=== PATIENT | male | born 1945 | race Caucasian/White ===

== ENCOUNTER 2018-06-13 06:26 | Day surgery (SDC) | payer MEDICARE ==
[2018-06-13] MEDS ORDERED: Propofol 200 MG/20 ML SDV IV ONE (06:27)
[2018-06-13] MEDS ORDERED: Lidocaine 2% 100 MG/5 ML Syringe IVPUSH ONE (06:27)
[2018-06-13] MEDS ORDERED: Phenylephrine 1% 10 MG/ML SDV IV ONE (06:27)
[2018-06-13] MEDS ORDERED: Sodium Chloride 0.9% 10 ML Syringe FLUSH PRN (06:45)
[2018-06-13] MEDS ORDERED: Lactated Ringers 1,000 ML IV SCH (06:45)
--- NOTE | 2018-06-13 08:08 | PCM.OPNOTE ---
- General Post-Op/Procedure Note Date of Surgery/Procedure: 06/13/18 Operative Procedure(s): egd Findings: gastritis Pre Op Diagnosis: melena. hx of gastritis Post-Op Diagnosis: Same Anesthesia Technique: MAC Primary Surgeon: Chas Oconnor Pathology: stomach Complications: None Condition: Good Free Text/Narrative:: see dictation
[2018-06-13 09:10] VITALS: BP 147/63
--- NOTE | 2018-06-13 15:51 | OR ---
DATE OF OPERATION: 06/13/2018 SURGEON: Chas Oconnor MD PROCEDURE PERFORMED: Upper endoscopy with cold forceps biopsy. PREOPERATIVE DIAGNOSES: Personal history of chronic gastritis and melena. POSTOPERATIVE DIAGNOSIS: Gastritis. INDICATIONS FOR PROCEDURE: This is a 72-year-old white male who has a known history of gastritis, which was diagnosed several years ago. Apparently, several weeks ago had a brief episode of melena that lasted for several days, which spontaneously resolved. He was offered and accepted an upper endoscopy. DESCRIPTION OF OPERATION: After an excellent IV sedation was administered, the bite block was inserted. The flexible endoscope was passed without difficulty down the patient's esophagus into the stomach. The stomach was insufflated. Scope was passed through the pylorus through second portion of the duodenum and slowly withdrawn. The following findings were noted. Duodenum was unremarkable. Stomach demonstrated diffuse gastritis, especially in the area of the antrum. Photos and biopsies were taken. Esophagus unremarkable. Stomach was deflated. Scope was removed. The patient tolerated the procedure well and was taken to recovery room in good condition. Results by letter. /[id number] /MODL
== END 2018-06-13 09:10 | disposition home or self-care (01) ==
LOC: FB.SDS 06:26
PROVIDERS: ATTEND Surgery
DX: K29.50 Unspecified chronic gastritis without bleeding (principal); I10 Essential (primary) hypertension; I25.10 Atherosclerotic heart disease of native coronary artery without angina pectoris; E78.5 Hyperlipidemia, unspecified; E03.9 Hypothyroidism, unspecified; Z87.891 Personal history of nicotine dependence; Z79.82 Long term (current) use of aspirin; Z79.899 Other long term (current) drug therapy; Z79.890 Hormone replacement therapy; Z88.5 Allergy status to narcotic agent
CPT/HCPCS: 43239; 88305; 88342; J2001; J2370; J2704; J7120

== ENCOUNTER 2021-12-24 05:56 | Day surgery (SDC) | payer MEDICARE ==
[2021-12-24] MEDS ORDERED: Propofol 200 MG/20 ML SDV IV ONE (05:57)
[2021-12-24] MEDS ORDERED: Glycopyrrolate 0.2 MG/ML 5 ML MDV IV ONE (05:57)
[2021-12-24] MEDS ORDERED: Sodium Chloride 0.9% 10 ML Syringe FLUSH PRN (06:15)
[2021-12-24] MEDS ORDERED: Lactated Ringers 1,000 ML IV SCH (06:15)
[2021-12-24 08:06] VITALS: PULSE 67
[2021-12-24 08:07] VITALS: BP 90/43
== END 2021-12-24 09:12 | disposition home or self-care (01) ==
LOC: FB.SDS 05:56
PROVIDERS: ATTEND Surgery
DX: Z12.11 Encounter for screening for malignant neoplasm of colon (principal); I10 Essential (primary) hypertension; E03.9 Hypothyroidism, unspecified; E78.00 Pure hypercholesterolemia, unspecified; I25.10 Atherosclerotic heart disease of native coronary artery without angina pectoris; K21.9 Gastro-esophageal reflux disease without esophagitis; M19.90 Unspecified osteoarthritis, unspecified site; D51.0 Vitamin B12 deficiency anemia due to intrinsic factor deficiency; F32.A Depression, unspecified; I73.9 Peripheral vascular disease, unspecified; Z95.5 Presence of coronary angioplasty implant and graft; Z79.890 Hormone replacement therapy; Z79.891 Long term (current) use of opiate analgesic; Z79.84 Long term (current) use of oral hypoglycemic drugs; Z88.6 Allergy status to analgesic agent; Z79.82 Long term (current) use of aspirin; Z79.899 Other long term (current) drug therapy; Z90.49 Acquired absence of other specified parts of digestive tract; Z98.890 Other specified postprocedural states; Z79.1 Long term (current) use of non-steroidal anti-inflammatories (NSAID)
CPT/HCPCS: G0121; J2704; J3490; J7120; 00812-QZ

== ENCOUNTER 2022-02-27 10:52 | Emergency (ER) | payer MEDICARE ==
[2022-02-27 11:58] LABS: ESTIMATED GFR 52 mL/min (>60)
[2022-02-27 13:58] VITALS: BP 109/53; PULSE 75
== END 2022-02-27 14:05 | disposition home or self-care (01) ==
LOC: FB.ED 10:52
DX: U07.1 COVID-19 (principal); I25.10 Atherosclerotic heart disease of native coronary artery without angina pectoris; E78.00 Pure hypercholesterolemia, unspecified; I10 Essential (primary) hypertension; I25.2 Old myocardial infarction; Z95.5 Presence of coronary angioplasty implant and graft; Z88.8 Allergy status to other drugs, medicaments and biological substances; Z79.82 Long term (current) use of aspirin; Z79.899 Other long term (current) drug therapy
CPT/HCPCS: 36415; 71045; 80048; 84484; 85025; 85379; 86140; 93005; 99284; U0002

== ENCOUNTER 2022-11-15 07:08 | Day surgery (SDC) | payer MEDICARE ==
[~2022-11-15 07:08] MED LIST: Lactated Ringers 1,000 ML IV PRN; Sodium Chloride 0.9% 10 ML Syringe FLUSH PRN
[2022-11-15] MEDS ORDERED: Midazolam 1 MG/ML 2 ML SDV IV ONE (07:09)
[2022-11-15] MEDS ORDERED: Sodium Chloride 0.9% 10 ML Syringe IV ONE (07:09)
[2022-11-15] MEDS ORDERED: acetaZOLAMIDE 500 MG Cap.ER PO ONE (09:00)
[2022-11-15 09:08] VITALS: BP 109/70; PULSE 62
== END 2022-11-15 10:00 | disposition home or self-care (01) ==
LOC: FB.SDS 07:08
PROVIDERS: ATTEND Ophthalmology
DX: H25.013 Cortical age-related cataract, bilateral (principal); D50.9 Iron deficiency anemia, unspecified; F32.A Depression, unspecified; E78.5 Hyperlipidemia, unspecified; M10.9 Gout, unspecified; E03.9 Hypothyroidism, unspecified; I73.9 Peripheral vascular disease, unspecified; N40.0 Benign prostatic hyperplasia without lower urinary tract symptoms; K21.00 Gastro-esophageal reflux disease with esophagitis, without bleeding; I10 Essential (primary) hypertension; F41.9 Anxiety disorder, unspecified; J44.9 Chronic obstructive pulmonary disease, unspecified; K58.2 Mixed irritable bowel syndrome; I65.21 Occlusion and stenosis of right carotid artery; Z79.82 Long term (current) use of aspirin; Z79.899 Other long term (current) drug therapy; Z79.02 Long term (current) use of antithrombotics/antiplatelets; Z90.49 Acquired absence of other specified parts of digestive tract; Z98.890 Other specified postprocedural states; Z87.891 Personal history of nicotine dependence; Z79.890 Hormone replacement therapy
CPT/HCPCS: 00142; A9270-GY; J2250; J3490; V2632

== ENCOUNTER 2022-11-29 08:38 | Day surgery (SDC) | payer MEDICARE ==
[2022-11-29] MEDS ORDERED: Midazolam 1 MG/ML 2 ML SDV IV ONE (08:39)
[2022-11-29] MEDS ORDERED: fentaNYL 100 MCG/2 ML SDV IV ONE (08:39)
[2022-11-29] MEDS: Lactated Ringers 1,000 ML IV PRN (09:45)
[2022-11-29] MEDS ORDERED: Sodium Chloride 0.9% 10 ML Syringe FLUSH PRN (10:30)
[2022-11-29] MEDS: acetaZOLAMIDE 500 MG Cap.ER PO ONE (11:15)
[2022-11-30 10:15] VITALS: BP 146/56; PULSE 81
== END 2022-11-29 11:45 | disposition home or self-care (01) ==
LOC: FB.SDS 08:38
PROVIDERS: ATTEND Ophthalmology
DX: H25.013 Cortical age-related cataract, bilateral (principal); E78.5 Hyperlipidemia, unspecified; M10.9 Gout, unspecified; E03.9 Hypothyroidism, unspecified; I73.9 Peripheral vascular disease, unspecified; N40.1 Benign prostatic hyperplasia with lower urinary tract symptoms; R35.0 Frequency of micturition; K21.00 Gastro-esophageal reflux disease with esophagitis, without bleeding; I25.10 Atherosclerotic heart disease of native coronary artery without angina pectoris; H40.9 Unspecified glaucoma; Z95.5 Presence of coronary angioplasty implant and graft; I10 Essential (primary) hypertension; F41.9 Anxiety disorder, unspecified; F32.A Depression, unspecified; Z90.49 Acquired absence of other specified parts of digestive tract; Z79.82 Long term (current) use of aspirin; Z79.899 Other long term (current) drug therapy; Z88.8 Allergy status to other drugs, medicaments and biological substances
CPT/HCPCS: 00732; 66984; A9270; J2250; J3010; J7120; V2632

== ENCOUNTER 2023-05-01 14:35 | Inpatient (IN) | payer MEDICARE ==
[2023-05-01] MEDS ORDERED: Ondansetron 4 MG Tab.DIS PO PRN (17:14)
[2023-05-01] MEDS ORDERED: Sodium Chloride 0.9% 1,000 ML IV SCH (17:15)
[2023-05-01] MEDS ORDERED: Sodium Chloride 0.9% 10 ML Syringe FLUSH PRN (17:35)
[2023-05-01] MEDS ORDERED: cefTRIAXone 1 GM in Sodium Chloride 0.9% 50 ML IV SCH (17:45)
[2023-05-01] MEDS ORDERED: cefTRIAXone 1 GM Vial IV SCH (17:45)
[2023-05-01] MEDS ORDERED: Azithromycin 500 MG Tab PO ONE (17:45)
[2023-05-01 19:08] LABS: BILIRUBIN,URINE NEGATIVE (NEGATIVE); GLUCOSE,URINE NORMAL (NORMAL); KETONES,URINE NEGATIVE (NEGATIVE); LEUKOCYTE ESTERASE,URINE NEGATIVE (NEGATIVE); NITRITE,URINE NEGATIVE (NEGATIVE); OCCULT BLOOD,URINE NEGATIVE (NEGATIVE); PROTEIN,URINE 30 mg/dL (NEGATIVE); UROBILINOGEN,URINE NORMAL (NEGATIVE)
[2023-05-01 19:20] LABS: APPEARANCE,URINE CLEAR (CLEAR); BACTERIA,URINE FEW (NS); COARSE GRANULAR CASTS,URINE RARE (NS); COLOR,URINE YELLOW (YELLOW); RBC,URINE 0-5 (0-5); SQUAMOUS EPITHELIAL CELLS,UR FEW (NS,R,O); WBC,URINE 0-5 (0-5)
[2023-05-01] MEDS ORDERED: Loperamide 2 MG Cap PO PRN (21:05)
[2023-05-01] MEDS ORDERED: Dicyclomine 10 MG Cap PO PRN (21:05)
[2023-05-01] MEDS ORDERED: Nitroglycerin 0.4 MG Tab.SL SL PRN (21:05)
[2023-05-01] MEDS ORDERED: Sucralfate 1 GM Tab PO SCH (21:09)
[2023-05-01] MEDS: Baclofen 10 MG Tab PO SCH (21:40)
[2023-05-01] MEDS: Finasteride 5 MG Tab PO SCH (21:41)
[2023-05-01] MEDS: Gabapentin 300 MG Cap PO SCH (21:41)
[2023-05-01] MEDS: Famotidine 20 MG Tab PO SCH (21:41)
[2023-05-01] MEDS: buPROPion 150 MG Tab.SR PO SCH (21:51)
[2023-05-01] MEDS: Nortriptyline 10 MG Cap PO SCH (21:51)
[2023-05-01] MEDS: busPIRone 10 MG Tab PO SCH (21:51)
[2023-05-01] MEDS: Sodium Chloride 0.9% 1,000 ML IV SCH (23:24)
[2023-05-02] MEDS: Pantoprazole 40 MG Tab.CR PO SCH (05:22)
[2023-05-02] MEDS: Levothyroxine 75 MCG Tab PO SCH (05:22)
[2023-05-02 06:29] LABS: BASOPHILS PERCENT AUTO 0.4 % (0.3-3.8); EOSINOPHILS ABSOLUTE AUTO 0.2 x10-3/uL (0.0-0.6); EOSINOPHILS PERCENT AUTO 1.6 % (0.1-6.8); HEMATOCRIT 23.9 % (38.3-50.1); HEMOGLOBIN 7.5 g/dL (12.9-17.7); LYMPHOCYTES ABSOLUTE AUTO 1.1 x10-3/uL (0.5-4.5); MEAN CORPUSCULAR HEMOGLOBIN 23.1 pg (27.0-33.3); MEAN CORPUSCULAR HGB CONC 31.3 g/dL (28.7-35.3); MEAN CORPUSCULAR VOLUME 73.8 fL (80.8-98.7); MEAN PLATELET VOLUME 7.7 fL (6.7-11.0); MONOCYTES ABSOLUTE AUTO 0.8 x10-3/uL (0.0-1.2); MONOCYTES PERCENT AUTO 7.4 % (5.5-15.2); NEUTROPHILS ABSOLUTE AUTO 8.9 x10-3/uL (1.7-6.9); NEUTROPHILS PERCENT AUTO 80.6 % (40.3-71.8); PLATELET COUNT,PLT 346 x10(3)uL (117-477); RED BLOOD CELL COUNT 3.23 x10(6)uL (3.90-5.90); RED CELL DISTRIBUTION WIDTH 19.7 % (12.4-15.0)
[2023-05-02 06:39] LABS: A/G RATIO 0.5; ALANINE AMINOTRANSFERASE,ALT 20 U/L (12-36); ALBUMIN 1.8 g/dL (3.2-4.6); ALKALINE PHOSPHATASE 98 IU/L (56-112); ASPARTATE AMNIOTRANSFERASE,AST 14 IU/L (5-25); BILIRUBIN TOTAL 0.2 mg/dL (0.1-1.3); BLOOD UREA NITROGEN,BUN 23 mg/dL (7-18); BUN/CREATININE RATIO 17.7 (9-20); CALCIUM 7.8 mg/dL (8.6-10.2); CARBON DIOXIDE,CO2 27 mmol/L (21-32); CHLORIDE,CL 107 mmol/L (100-110); CREATININE 1.3 mg/dL (0.70-1.30); EST CRCL DRUG DOSING (CG) 36.35 mL/min; ESTIMATED GFR 57 mL/min (>60); GLUCOSE RANDOM 79 mg/dL (80-116); PROTEIN TOTAL,TP 5.3 g/dL (6.0-8.0); SODIUM,NA 144 mmol/L (135-145)
[2023-05-02 06:50] LABS: POTASSIUM,K 2.4 mmol/L (3.5-5.3)
[2023-05-02] MEDS ORDERED: Nitroglycerin 2% Oint 1 GM UD Packet TOP SCH (09:00)
[2023-05-02] MEDS: Sucralfate 1 GM Tab PO SCH ×4 (09:09→21:14)
[2023-05-02] MEDS: buPROPion 150 MG Tab.SR PO SCH ×2 (09:09→21:14)
[2023-05-02] MEDS: Aspirin 81 MG Tab.EC PO SCH (09:10)
[2023-05-02] MEDS: Clopidogrel 75 MG Tab PO SCH (09:10)
[2023-05-02] MEDS: Vancomycin 125 MG Cap PO SCH ×4 (09:10→21:14)
[2023-05-02] MEDS: Ferrous Sulfate 325 MG Tab PO SCH (09:11)
[2023-05-02] MEDS: Tamsulosin 0.4 MG Cap.ER PO SCH (09:11)
[2023-05-02] MEDS: Baclofen 10 MG Tab PO SCH ×2 (09:11→21:14)
[2023-05-02] MEDS: busPIRone 10 MG Tab PO SCH ×3 (09:11→21:14)
[2023-05-02] MEDS: Cyanocobalamin (Vitamin B12) 500 MCG Tab PO SCH (09:12)
[2023-05-02] MEDS: Sodium Chloride 0.9% 1,000 ML IV SCH ×2 (09:20→17:47)
[2023-05-02] MEDS: Enoxaparin 40 MG/0.4 ML Syringe SUBCUT SCH (09:21)
[2023-05-02] MEDS: Losartan 100 MG Tab PO SCH (09:22)
[2023-05-02] MEDS: Potassium Chloride 20 MEQ Tab.ER PO SCH ×2 (09:22→21:14)
[2023-05-02] MEDS: Gabapentin 300 MG Cap PO SCH ×3 (09:22→21:15)
[2023-05-02] MEDS: amLODIPine 2.5 MG Tab PO SCH (09:22)
[2023-05-02] MEDS ORDERED: Simvastatin 20 MG Tab PO SCH (21:00)
[2023-05-02] MEDS ORDERED: Latanoprost 0.005% Ophth Soln 2.5 ML Bottle EYEBOTH SCH (21:00)
[2023-05-02] MEDS: Finasteride 5 MG Tab PO SCH (21:14)
[2023-05-02] MEDS: Famotidine 20 MG Tab PO SCH (21:14)
[2023-05-02] MEDS: Nortriptyline 10 MG Cap PO SCH (21:14)
[2023-05-03] MEDS: Sodium Chloride 0.9% 1,000 ML IV SCH (02:05)
[2023-05-03] MEDS: Levothyroxine 75 MCG Tab PO SCH (05:18)
[2023-05-03] MEDS: Sucralfate 1 GM Tab PO SCH ×3 (05:18→16:44)
[2023-05-03] MEDS: Pantoprazole 40 MG Tab.CR PO SCH (05:19)
[2023-05-03 06:49] LABS: HEMATOCRIT 25.6 % (38.3-50.1); HEMOGLOBIN 7.9 g/dL (12.9-17.7); MEAN CORPUSCULAR HEMOGLOBIN 22.6 pg (27.0-33.3); MEAN CORPUSCULAR HGB CONC 30.8 g/dL (28.7-35.3); MEAN CORPUSCULAR VOLUME 73.5 fL (80.8-98.7); MEAN PLATELET VOLUME 7.4 fL (6.7-11.0); PLATELET COUNT,PLT 447 x10(3)uL (117-477); RED BLOOD CELL COUNT 3.49 x10(6)uL (3.90-5.90); WHITE BLOOD CELL COUNT,WBC 8.8 x10-3/uL (3.2-10.1)
[2023-05-03 06:53] LABS: BLOOD UREA NITROGEN,BUN 12 mg/dL (7-18); CALCIUM 7.6 mg/dL (8.6-10.2); CARBON DIOXIDE,CO2 29 mmol/L (21-32); CHLORIDE,CL 110 mmol/L (100-110); CREATININE 0.8 mg/dL (0.70-1.30); EST CRCL DRUG DOSING (CG) 63.01 mL/min; ESTIMATED GFR 91 mL/min (>60); GLUCOSE RANDOM 90 mg/dL (80-116); SODIUM,NA 146 mmol/L (135-145)
[2023-05-03 07:00] LABS: POTASSIUM,K 2.6 mmol/L (3.5-5.3)
[2023-05-03 07:15] LABS: EOSINOPHILS PERCENT MAN 3 % (0-5); LYMPHOCYTES PERCENT MAN 12 % (13-37); MONOCYTES PERCENT MAN 5 % (4-12); SEG NEUTROPHILS PERCENT MAN 80 % (46-82)
[2023-05-03 07:22] LABS: ANISOCYTOSIS FEW
[2023-05-03] MEDS: Potassium Chloride 20 MEQ Tab.ER PO SCH ×3 (08:49→18:23)
[2023-05-03] MEDS: Enoxaparin 40 MG/0.4 ML Syringe SUBCUT SCH (08:50)
[2023-05-03] MEDS: busPIRone 10 MG Tab PO SCH ×2 (08:50→13:33)
[2023-05-03] MEDS: Ferrous Sulfate 325 MG Tab PO SCH (08:51)
[2023-05-03] MEDS: Losartan 100 MG Tab PO SCH (08:51)
[2023-05-03] MEDS: Aspirin 81 MG Tab.EC PO SCH (08:52)
[2023-05-03] MEDS: Tamsulosin 0.4 MG Cap.ER PO SCH (08:52)
[2023-05-03] MEDS: Gabapentin 300 MG Cap PO SCH ×2 (08:53→13:33)
[2023-05-03] MEDS: Baclofen 10 MG Tab PO SCH (08:53)
[2023-05-03] MEDS: amLODIPine 2.5 MG Tab PO SCH (08:55)
[2023-05-03] MEDS: buPROPion 150 MG Tab.SR PO SCH (08:56)
[2023-05-03] MEDS: Vancomycin 125 MG Cap PO SCH ×3 (08:56→16:44)
[2023-05-03] MEDS: Clopidogrel 75 MG Tab PO SCH (08:56)
[2023-05-03] MEDS: Cyanocobalamin (Vitamin B12) 500 MCG Tab PO SCH (09:03)
[2023-05-03] MEDS ORDERED: Vancomycin 125 MG Cap PO STA (16:51)
[2023-05-03 18:32] LABS: IRON BINDING CAPACITY TOTAL 264 ug/dL (240-450); IRON,SERUM OR PLASMA 9 ug/dL (45-182); TRANSFERRIN SATURATION 3 %sat (20-50)
[2023-05-03 18:41] LABS: FERRITIN 89 ng/mL (31-409)
[2023-05-03 19:21] VITALS: BP 150/80; PULSE 83
== END 2023-05-03 18:35 | disposition home or self-care (01) | DRG 372 ==
LOC: FB.MS 14:35
PROVIDERS: ADMIT Family Medicine; ATTEND Family Medicine
DX: A04.72 Enterocolitis due to Clostridium difficile, not specified as recurrent (principal); N17.9 Acute kidney failure, unspecified; E86.0 Dehydration; E87.6 Hypokalemia; Z51.5 Encounter for palliative care; D64.9 Anemia, unspecified; H91.90 Unspecified hearing loss, unspecified ear; H40.9 Unspecified glaucoma; E78.00 Pure hypercholesterolemia, unspecified; I10 Essential (primary) hypertension; K59.09 Other constipation; K21.9 Gastro-esophageal reflux disease without esophagitis; M10.9 Gout, unspecified; M19.90 Unspecified osteoarthritis, unspecified site; M54.9 Dorsalgia, unspecified; F41.9 Anxiety disorder, unspecified; F32.A Depression, unspecified; F10.10 Alcohol abuse, uncomplicated; E03.9 Hypothyroidism, unspecified; Z98.49 Cataract extraction status, unspecified eye; Z90.89 Acquired absence of other organs; Z79.82 Long term (current) use of aspirin; Z11.52 Encounter for screening for COVID-19; Z79.899 Other long term (current) drug therapy; Z88.8 Allergy status to other drugs, medicaments and biological substances; Z90.49 Acquired absence of other specified parts of digestive tract; Z98.890 Other specified postprocedural states; I25.2 Old myocardial infarction; Z95.5 Presence of coronary angioplasty implant and graft; Z87.891 Personal history of nicotine dependence
CPT/HCPCS: 36415; 71250; 74176; 80048; 80053; 81001; 82728; 83540; 83550; 83605; 84132; 85025; 85045; 85379; 87040; 87230; 99222; 99232; 99238; A9270-GY; J0696; J1650; J3490; J7030

== ENCOUNTER 2023-05-17 13:44 | Emergency (ER) | payer MEDICARE ==
[2023-05-17] MEDS ORDERED: Sodium Chloride 0.9% 1,000 ML IV ONE (14:33)
[2023-05-17] MEDS ORDERED: Ondansetron 4 MG/2 ML SDV IVPUSH ONE (14:34)
[2023-05-17] MEDS: Sodium Chloride 0.9% 1,000 ML IV SCH ×2 (14:50→22:02)
[2023-05-17 15:18] LABS: HEMATOCRIT 24.7 % (38.3-50.1); HEMOGLOBIN 7.6 g/dL (12.9-17.7); MEAN CORPUSCULAR HEMOGLOBIN 22.1 pg (27.0-33.3); MEAN CORPUSCULAR HGB CONC 30.6 g/dL (28.7-35.3); MEAN CORPUSCULAR VOLUME 72.3 fL (80.8-98.7); MEAN PLATELET VOLUME 7.1 fL (6.7-11.0); PLATELET COUNT,PLT 555 x10(3)uL (117-477); RED BLOOD CELL COUNT 3.42 x10(6)uL (3.90-5.90); RED CELL DISTRIBUTION WIDTH 19.5 % (12.4-15.0); WHITE BLOOD CELL COUNT,WBC 12.1 x10-3/uL (3.2-10.1)
[2023-05-17 15:19] LABS: BLOOD UREA NITROGEN,BUN 19 mg/dL (7-18); BUN/CREATININE RATIO 12.7 (9-20); CALCIUM 8.3 mg/dL (8.6-10.2); CARBON DIOXIDE,CO2 28 mmol/L (21-32); CHLORIDE,CL 105 mmol/L (100-110); CREATININE 1.5 mg/dL (0.70-1.30); EST CRCL DRUG DOSING (CG) 31.32 mL/min; ESTIMATED GFR 48 mL/min (>60); GLUCOSE RANDOM 82 mg/dL (80-116); POTASSIUM,K 3.9 mmol/L (3.5-5.3); SODIUM,NA 139 mmol/L (135-145)
[2023-05-17 15:25] LABS: A/G RATIO 0.6; ALANINE AMINOTRANSFERASE,ALT 13 U/L (12-36); ALBUMIN 2.2 g/dL (3.2-4.6); ALKALINE PHOSPHATASE 109 IU/L (56-112); ASPARTATE AMNIOTRANSFERASE,AST 20 IU/L (5-25); BILIRUBIN TOTAL 0.2 mg/dL (0.1-1.3); MAGNESIUM 1.5 mg/dL (1.8-2.5); PROTEIN TOTAL,TP 5.9 g/dL (6.0-8.0)
[2023-05-17 15:30] LABS: C-REACTIVE PROTEIN 7.04 mg/dL (<0.50)
[2023-05-17 16:37] LABS: LYMPHOCYTES PERCENT MAN 6 % (13-37); MICROCYTOSIS MODERATE; MONOCYTES PERCENT MAN 1 % (4-12); SEG NEUTROPHILS PERCENT MAN 93 % (46-82)
[2023-05-17] MEDS ORDERED: Sodium Chloride 0.9% 500 ML IV ONE (19:24)
[2023-05-17 19:49] LABS: HEMATOCRIT 25.2 % (38.3-50.1); HEMOGLOBIN 7.8 g/dL (12.9-17.7)
[2023-05-17 21:33] LABS: BILIRUBIN,URINE NEGATIVE (NEGATIVE); GLUCOSE,URINE NORMAL (NORMAL); KETONES,URINE NEGATIVE (NEGATIVE); LEUKOCYTE ESTERASE,URINE NEGATIVE (NEGATIVE); NITRITE,URINE NEGATIVE (NEGATIVE); OCCULT BLOOD,URINE NEGATIVE (NEGATIVE); PROTEIN,URINE TRACE mg/dL (NEGATIVE); UROBILINOGEN,URINE NORMAL (NEGATIVE)
[2023-05-17 21:35] LABS: APPEARANCE,URINE CLEAR (CLEAR); COLOR,URINE YELLOW (YELLOW); RBC,URINE 0-5 (0-5); SQUAMOUS EPITHELIAL CELLS,UR OCCASIONAL (NS,R,O); WBC,URINE 0-5 (0-5)
[2023-05-17 21:36] LABS: BACTERIA,URINE RARE (NS); CALCIUM OXALATE CRYSTALS,URINE FEW (NS)
[2023-05-17 22:23] VITALS: BP 115/68; PULSE 77
[2023-05-17] MEDS: Aspirin 81 MG Tab.Chew PO ONE ×2 (22:35→23:29)
[2023-05-17] MEDS ORDERED: cefTRIAXone 2 GM Vial IVPUSH ONE (22:43)
== END 2023-05-17 23:11 ==
LOC: FB.ED 13:44
DX: I21.4 Non-ST elevation (NSTEMI) myocardial infarction (principal); J18.9 Pneumonia, unspecified organism; N17.9 Acute kidney failure, unspecified; I95.1 Orthostatic hypotension; R19.7 Diarrhea, unspecified; D64.9 Anemia, unspecified; I25.10 Atherosclerotic heart disease of native coronary artery without angina pectoris; E78.00 Pure hypercholesterolemia, unspecified; K21.9 Gastro-esophageal reflux disease without esophagitis; E03.9 Hypothyroidism, unspecified; Z86.16 Personal history of COVID-19; Z87.891 Personal history of nicotine dependence; Z79.82 Long term (current) use of aspirin; Z79.02 Long term (current) use of antithrombotics/antiplatelets; Z79.899 Other long term (current) drug therapy; Z88.1 Allergy status to other antibiotic agents; Z20.822 Contact with and (suspected) exposure to COVID-19
CPT/HCPCS: 36415; 74176; 80053; 81001; 82272; 83605; 83690; 83735; 84484; 85014; 85018; 85025; 86140; 87040; 93005; 93010; 96361; 96374; 96375; 99285; A9270; C1758; J0696; J2405; J7030; J7040; U0002